=== PATIENT | male | born 2000 | race Caucasian/White ===

== ENCOUNTER → 2023-01-11 13:07 | Outpatient (BNVA) | payer BC, SELFPAY | PROVIDERS: Visit Provider Physician Assistant | DX: M51.26 Other intervertebral disc displacement, lumbar region (principal) | CPT/HCPCS: 99212 ==

== ENCOUNTER → 2023-02-25 15:15 | Outpatient (BNVA) | payer BC, SELFPAY | PROVIDERS: Visit Provider Physician Assistant ==

== ENCOUNTER 2023-06-21 12:59 | Outpatient (AMB) | payer BC, OTHER, SELFPAY ==
--- NOTE | 2023-06-21 13:14 | HO.SPINEOV ---
Intake Intake Visit Reasons: Back pain Intake Note: Mr. Alexis is here today c/o recurrent low back pain. Conference Concierge Required: No Assessment & Plan Assessment & Plan (1) Lumbar disc herniation: Code(s): M51.26 - Other intervertebral disc displacement, lumbar region Plan Clemente is a 22 year old male who comes in today with a chief complaint of continued leg pain with intermittent R sided radiculopathy down his posterior thigh. He is previously known to our service and had a L5-S1 microdiskectomy done in spring of this year (2022). He had returned to work after surgery and was lifting / twisting with boxes in his hands and felt a pop in his low back which brought him to his knees. He was seen by emergency medical services who completed at MRI showing a recurrence of a disc herniation at L5-S1. It should also be noted that a mild-moderate posterior disc bulge can also be appreciated at L4-5. He states that he was beginning to feel better in late January when he saw ROBEL Vargas, but has continued to have moderate low back and R leg pain since then. He also states that 2 weeks ago he again had another incident when he felt another pop when turning to open his front door, which again sent shooting pains down the back of his leg, and caused him to limp / remain in bed for multiple days until his symptoms returned to his baseline of low back pain and posterior R radiculopathy. It seems that Clemente contineus to suffer from recurrent disc herniations at L5-S1 and possibly at L4-5. I discussed this case with Dr. Dodge who would like Clemente to get a repeat MRI before being seen back in the clinic by him to discuss surgical options. I will order an MRI to be completed here at [facility] per patient request. Total time spent with patient was 35 minutes reviewing MRI, comparing to old imaging, discussing treatment options, ordering new imaging, and developing subsequent plan of care. Geovanny Penn PA-C Orders: Orders MR lumbar spine wo con Today M51.26 - Other intervertebral disc displacement, lumbar region Coding Level of Care Code Est Pt Level 4 (16200) Diagnoses Lumbar disc herniation M51.26
== END 2023-06-21 14:02 | disposition home or self-care (01) ==
PROVIDERS: Visit Provider Physician Assistant
DX: M51.26 Other intervertebral disc displacement, lumbar region (principal)
CPT/HCPCS: 99214

== ENCOUNTER → 2023-06-21 12:59 | Outpatient (BNVA) | payer BC, OTHER, SELFPAY | PROVIDERS: Visit Provider Physician Assistant ==

== ENCOUNTER 2023-07-11 19:01 | Outpatient (REF) | payer BC, OTHER, SELFPAY ==
--- NOTE | ~2023-07-11 | MR_ITS ---
EXAMINATION: MR LUMBAR SPINE WITHOUT CONTRAST CLINICAL INFORMATION: New pain status post prior surgery COMPARISON: None TECHNIQUE: MRI of the lumbar spine was obtained using routine sequences without contrast. FINDINGS: Straightening of the normal lumbar lordosis. Grade 1 retrolisthesis at L5-S1 and trace retrolisthesis at L4-L5. Vertebral body heights are maintained. There is no suspicious osseous lesion. Disc desiccation at L4-L5 and L5-S1 with minimal L5-S1 disc height loss. 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 L2-L3: Mild bilateral facet hypertrophy. No spinal canal or neural foraminal stenosis. L3-L4: Shallow annular disc bulge and mild bilateral facet hypertrophy. Mild spinal canal narrowing and minimal left without significant right neural foraminal encroachment. L4-L5: Prior right L4 hemilaminectomy. Annular disc bulge with superimposed small superiorly and inferiorly migrated central disc extrusion, the inferior component which is eccentric to the right. Mild bilateral facet hypertrophy with trace facet joint effusions. Mild spinal canal narrowing and encroachment/abutment upon the traversing right L5 nerve root in the subarticular zone. Mild bilateral neural foraminal encroachment. L5-S1: Prior left L5 hemilaminectomy. Retrolisthesis with annular disc bulge and superimposed broad-based paracentral/subarticular disc extrusion eccentric to the left with inferiorly migrated left central component and mild bilateral facet hypertrophy. Mild spinal canal narrowing and left greater than right subarticular zone stenosis impressing upon the traversing left and encroaching upon the traversing right S1 nerve roots. The conus medullaris terminates at the level of L2. The distal spinal cord is normal in appearance. . No epidural fluid collection, hematoma, or mass. No significant abnormalities of the paraspinal musculature. Limited evaluation of the intra-abdominal structures without significant abnormalities. The abdominal aorta is of normal contour and caliber. MR/MR lumbar spine wo con IMPRESSION: 1. 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 At L4-L5, prior right L4 hemilaminectomy. Annular disc bulge with superimposed small superiorly and inferiorly migrated central disc extrusion, the latter of which is eccentric to the right and contributes to mild spinal canal narrowing and encroachment/abutment upon the traversing right L5 nerve root in the subarticular zone. 3. At L5-S1, prior left L5 hemilaminectomy. Grade 1 retrolisthesis with annular disc bulge and broad-based left paracentral/subarticular disc extrusion with inferiorly migrated left central component. Mild spinal canal narrowing and left greater than right subarticular zone stenosis impressing upon the traversing left and encroaching upon the traversing right S1 nerve roots.
== END 2023-07-11 19:02 | disposition home or self-care (01) ==
LOC: HO.MRI 19:01
PROVIDERS: Visit Provider Physician Assistant
DX: M51.26 Other intervertebral disc displacement, lumbar region (principal)
CPT/HCPCS: 72148

== ENCOUNTER 2023-07-20 13:42 | Outpatient (AMB) | payer BC, OTHER, SELFPAY ==
--- NOTE | 2023-07-20 13:53 | HO.SPINEOV ---
Intake Intake Visit Reasons: discuss MRI Intake Note: Mr. Alexis is here today to discuss the results of his MRI. Assessment & Plan Assessment & Plan (1) Lumbar disc herniation: Code(s): M51.26 - Other intervertebral disc displacement, lumbar region Plan Clemente comes in today as a follow-up patient after having his MRI completed and reviewed. He continues to have R sided leg pain with intermittent R sided radiculopathy down his posterior thigh, alongside low back pain. His symptoms have not improved at all. His right-sided radiculopathy gets so bad at times that it wakes him from his sleep. 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 His MRI shows some central canal stenosis at L5-S1, alongside some S1 right-sided exiting nerve root impingement Due to disc protrusion on this side. The MRI was reviewed with Dr. Dodge, who offered him a L5-S1 right-sided microdiskectomy completed. We extensively reviewed the healing course of disc herniations, and discussed the pros and cons of proceeding with this surgery, especially considering the patient is 22 years old and this will be his 2nd lumbar surgery. he reported that the pain is right leg and low back her so bad that he would like to have the surgery completed & cannot continue to live like this. Medications, physical exercise, and [id number] medications have been of no use to him. Clemente was given risk and benefits of surgery including but not limited to infection, hematoma, nerve injury, durotomy, weakness, bowel/bladder injury, persistent pain, as well as the option to continue with conservative treatment and patient wishes to proceed with surgery. Clemente is aware they should stop their NSAID medication 7 days prior to surgery. All questions were answered to the best of our ability. If there is anything about this patients medical history that we have overlooked or concerns you have about us proceeding with surgery we would appreciate any input you can offer. Total amount of time spent in this visit was 35 minutes in discussion of symptoms, MRI imaging results and subsequent plan of care Geovanny Dodge MD,PhD [facility] Coding Level of Care Code Est Pt Level 4 (77186) Diagnoses Lumbar disc herniation M51.26
== END 2023-07-20 14:12 | disposition home or self-care (01) ==
PROVIDERS: Visit Provider Physician Assistant
DX: M51.26 Other intervertebral disc displacement, lumbar region (principal)
CPT/HCPCS: 99214

== ENCOUNTER → 2023-07-20 13:42 | Outpatient (BNVA) | payer BC, OTHER, SELFPAY | PROVIDERS: Visit Provider Physician Assistant ==

== ENCOUNTER → 2023-09-29 13:17 | Outpatient (BNV) | payer BC, OTHER, SELFPAY | PROVIDERS: Visit Provider Internal Medicine Cardiovascular Disease | DX: R00.1 Bradycardia, unspecified (principal) | CPT/HCPCS: 93010 ==

== ENCOUNTER 2023-10-13 05:45 | Day surgery (SDC) | payer BC, OTHER, SELFPAY ==
--- NOTE | 2023-09-29 | ECG_ITS ---
Test Reason : preop Blood Pressure : / mmHG Vent. Rate : 058 BPM Atrial Rate : 058 BPM P-R Int : 162 ms QRS Dur : 106 ms QT Int : 414 ms P-R-T Axes : 033 008 016 degrees QTc Int : 406 ms Sinus bradycardia with sinus arrhythmia Otherwise normal ECG No previous ECGs available Referred By: Jackie Bedoya Electronically Signed By:CRISTIAN DUPREE MD
[2023-09-29 12:36] VITALS: BP 130/94; PULSE 83; RESP 20; O2SAT 97; BMI 37.1
--- NOTE | 2023-09-29 12:48 | P.CONAN_ITS ---
Documented by User: Jackie Bedoya NP 10/12/23 08:37 HPI - Anesthesia Eval Consult details Narrative: 22yo M for Left L5-S1 Microlumbar discectomy, 10/13/23 No PCP. No recent illness. No CP/SOB within limits of pain. Asthma stable. Uses brothers albuterol inhaler. Only exacerbated with cat allergy and running in the cold GERD. No rx. PMFSH Active Problems Active Problems: All Active Problems (Updated 09/29/23 @ 12:27 by Radha Hill RN) Lumbar disc herniation (Acute) Past Medical History Medical History (Updated 09/29/23 @ 12:27 by Radha Hill RN) Back pain Suicide attempt GERD (gastroesophageal reflux disease) Asthma Lumbar disc disease with radiculopathy Family History Family history of problems with anesthesia: No Surgical History Surgical History (Updated 09/29/23 @ 12:29 by Radha Hill RN) Hx of hand surgery History of surgery Hx of circumcision Hx of lumbar discectomy History of Problems with Anesthesia: No Social History Social History Are you a primary home care manager to a significant other at home: No Do you presently have visiting nurse or other home services: No Tobacco use type: Smokeless Tobacco Use of substances other than those prescribed or required for medical reasons: Yes Substance Use Type Other:: smokes marijuana Substance Use Frequency: Daily Have you been hit, kicked, punched, or otherwise hurt by someone within the past year? If so, by whom?: No Are you DNR?: No Advance Directives: No Advance Directives Information Provided: Yes Advance Directives on File: No Recently lost weight without trying: No Eating poorly because of decreased appetite: No Nutrition Risks: No Nutritional Risk Poor oral hygiene: No Meds Allergies Allergy/AdvReac Type Severity Reaction Status Date / Time Penicillins Allergy Severe Rash-childhood Verified 09/29/23 12:31 allergy avocado Allergy Intermediate mouth Verified 09/29/23 12:34 itching banana Allergy Intermediate mouth Verified 09/29/23 12:34 itching Home Medications Medication Instructions Recorded Confirmed Last Taken Type albuterol sulfate 0.63 mg/3 mL 0.63 mg inhalation Q4-6H PRN 09/29/23 09/29/23 Unknown History solution for nebulization Shortness Of Breath Or Wheezing ibuprofen 800 mg tablet 800 mg PO Q8H PRN Pain 09/29/23 09/29/23 Unknown History Exam Height,Weight and Vital Signs: Height 6 ft 3 in Weight 134.717 kg Last Vital Signs Pulse 83 09/29/23 12:36 Resp 20 09/29/23 12:36 BP 130/94 H 09/29/23 12:36 Pulse Ox 97 09/29/23 12:36 O2 Del Method Room Air 09/29/23 12:36 Pertinent Lab Results Pertinent Lab Results: Lab Results 09/29/23 Range/Units 13:19 WBC 7.0 (4.8-10.8) X10*3/uL RBC 5.43 (4.60-5.80) X10*6/uL Hgb 14.6 (14.0-18.0) g/dl Hct 43.8 (42.0-52.0) % MCV 80.7 (80.0-98.0) fL MCH 26.9 L (27.0-33.0) pg MCHC 33.3 (31.0-36.0) g/dl RDW 11.9 (11.0-16.0) % Plt Count 338 (160-400) X10*3/uL MPV 9.2 L (9.4-12.4) fL Absolute Nucleated RBC 0.000 (0.0-0.012) X10*3/uL Nucleated RBC % (auto) 0.0 (0.0-0.2) /100WBC Sodium 140 (135-145) mmol/L Potassium 4.3 (3.3-5.1) mmol/L Chloride 107 (96-108) mmol/L Carbon Dioxide 28 (22-29) mmol/L Anion Gap 9 L (12-20) BUN 10 (9-16) mg/dL Creatinine 1.03 (0.5-1.4) mg/dL Estim Creat Clear Calc 165.0 Estimated GFR > 60 Random Glucose 99 (60-115) mg/dL Estimat Average Glucose 100 mg/dL Hemoglobin A1c % 5.1 (<6.0) % Calcium 9.4 (8.4-10.2) mg/dL Total Bilirubin 0.3 (0.0-1.0) mg/dL AST 27 (5-37) U/L ALT 56 H (0-40) U/L Alkaline Phosphatase 66 (39-117) U/L Total Protein 7.4 (6.5-8.0) g/dL Albumin 4.2 (3.5-5.0) g/dL Narrative Narrative: EKG 09/2023 Vent. Rate : 058 BPM Atrial Rate : 058 BPM P-R Int : 162 ms QRS Dur : 106 ms QT Int : 414 ms P-R-T Axes : 033 008 016 degrees QTc Int : 406 ms Sinus bradycardia with sinus arrhythmia Otherwise normal ECG No previous ECGs available Airway Mallampati Class: I TM Dist: >3cm Neck ROM: Full Loose/Missing/Broken Teeth: No Heart: RRR Lungs: CTAB Assessment and Plan Assessment Anesthesia Assessment: Anesthesia Plan Discussed, Smoking Cess. Discussed and PAT Visit Final Anesthetic Review Family History of Problems with Anesthesia: No History of Problems with Anesthesia: No Documented by User: Gerhard Coats MD 10/13/23 07:12 [facility] Past Medical History Medical History (Updated 09/29/23 @ 12:27 by Radha Hill RN) Back pain Suicide attempt GERD (gastroesophageal reflux disease) Asthma Lumbar disc disease with radiculopathy Surgical History Surgical History (Updated 09/29/23 @ 12:29 by Radha Hill RN) Hx of hand surgery History of surgery Hx of circumcision Hx of lumbar discectomy Social History Social History Are you a primary home care manager to a significant other at home: No Do you presently have visiting nurse or other home services: No Tobacco use type: Smokeless Tobacco Use of substances other than those prescribed or required for medical reasons: Yes Substance Use Type Other:: smokes marijuana Substance Use Frequency: Daily Have you been hit, kicked, punched, or otherwise hurt by someone within the past year? If so, by whom?: No Are you DNR?: No Advance Directives: No Advance Directives Information Provided: Yes Advance Directives on File: No Recently lost weight without trying: No Eating poorly because of decreased appetite: No Nutrition Risks: No Nutritional Risk Poor oral hygiene: No Meds Allergies Allergy/AdvReac Type Severity Reaction Status Date / Time Penicillins Allergy Severe Rash-childhood Verified 09/29/23 12:31 allergy avocado Allergy Intermediate mouth Verified 09/29/23 12:34 itching banana Allergy Intermediate mouth Verified 09/29/23 12:34 itching Home Medications Medication Instructions Recorded Confirmed Last Taken Type albuterol sulfate 0.63 mg/3 mL 0.63 mg inhalation Q4-6H PRN 09/29/23 09/29/23 Unknown History solution for nebulization Shortness Of Breath Or Wheezing ibuprofen 800 mg tablet 800 mg PO Q8H PRN Pain 09/29/23 09/29/23 Unknown History Exam Airway Mallampati Class: II Assessment and Plan Assessment Anesthesia Assessment: Chart Reviewed Final Anesthetic Review NPO: Yes ASA Class: III Final Preanesthetic Review: No Changes in Pt Med Stat, Meds/Allgs Chart Reviewed, Consent Obtained/Reviewed and Anes Risks/Benef Reviewed Patient Risk: Intermediate Procedure Risk: Intermediate Anesthetic Plan Anesthetic Plan: GA Disposition: Standard PACU
[2023-09-29 13:31] LABS: Hematocrit 43.8 % (42.0-52.0); Hemoglobin 14.6 g/dl (14.0-18.0); Mean Corpuscular HGB Conc 33.3 g/dl (31.0-36.0); Mean Corpuscular Hemoglobin 26.9 pg (27.0-33.0); Mean Corpuscular Volume 80.7 fL (80.0-98.0); Mean Platelet Volume 9.2 fL (9.4-12.4); Platelet Count 338 X10*3/uL (160-400); Red Blood Count 5.43 X10*6/uL (4.60-5.80); Red Cell Distribution Width 11.9 % (11.0-16.0)
[2023-09-29 13:48] LABS: Estimated Average Glucose 100 mg/dL; Hemoglobin A1C 121.8638 umol/L; Hemoglobin A1c % 5.1 % (<6.0)
[2023-09-29 14:02] LABS: Alanine Aminotransferase 56 U/L (0-40); Albumin Level 4.2 g/dL (3.5-5.0); Alkaline Phosphatase 66 U/L (39-117); Anion Gap 9 (12-20); Aspartate Amino Transferase 27 U/L (5-37); Bilirubin Total 0.3 mg/dL (0.0-1.0); Blood Urea Nitrogen 10 mg/dL (9-16); Calcium 9.4 mg/dL (8.4-10.2); Carbon Dioxide 28 mmol/L (22-29); Chloride 107 mmol/L (96-108); Estimated Glomerular Filt Rate > 60; Glucose Random 99 mg/dL (60-115); Potassium 4.3 mmol/L (3.3-5.1); Sodium 140 mmol/L (135-145); Total Protein 7.4 g/dL (6.5-8.0)
[2023-10-13] VITALS (9 sets, daily range): BP systolic 92–113; BP diastolic 45–87; PULSE 57–105; RESP 16–20; TEMP 36.1–36.6; O2SAT 97–100; BMI 37.0
--- NOTE | ~2023-10-13 | FL_ITS ---
EXAMINATION: XR FLUOROSCOPY WITH IMAGES CLINICAL INFORMATION: L5-S1 microlumbar discectomy. COMPARISON: MRI lumbar spine dated 07/11/2023. TECHNIQUE: Fluoroscopy Supervised By: Dr. Jayant Dodge. Fluoroscopy Time: 0.0. Cumulative Dose: 3.16 mGy. DAP: 0.685 Gycm2. Images: 1. FINDINGS: The submitted lateral fluoroscopic view of the lumbosacral spine shows a probe directed at the posterior margin of the L5-S1 disc space. FL/FL guidance in OR IMPRESSION: Intraoperative fluoroscopic guidance is provided during L5-S1 microlumbar discectomy. Please see the patient's Operative Report for full procedural details.
[2023-10-13] MEDS: Gabapentin 300 MG CAPSULE PO (06:35)
[2023-10-13] MEDS: methocarbamoL 750 MG TABLET PO (06:35)
[2023-10-13] MEDS: Lactated Ringers 1,000 ML 100 ML IVCONT (06:42)
--- NOTE | 2023-10-13 07:02 | MHC.SHP ---
Pre-Procedural Eval Section A Date of Service: 10/13/23 The patient is an INPATIENT: No Changes since office visit: No Cold of Flu in the past 2 weeks, No New Medical Problems, No Changes in Medication and No Patient answered all questions The History & Physical has been completed within 30 days and I have reviewed it.: No Section B Chief Complaint: Other intervertebral disc displacement, lumbar reg Allergies: Allergies Allergy/AdvReac Type Severity Reaction Status Date / Time Penicillins Allergy Severe Rash-childhood Verified 09/29/23 12:31 allergy avocado Allergy Intermediate mouth Verified 09/29/23 12:34 itching banana Allergy Intermediate mouth Verified 09/29/23 12:34 itching Review of Systems Sugical H&P ROS: Negative: Constitution, Cardiovascular, Respiratory, Neurological, Psychiatric, Hem-Onc, Allergic/Immunologic, Gastrointestinal, Genitourinary, Musculoskeletal, Integumentary, Endocrine and Eyes/Ears/Nose/Throat Exam Surgical H&P Exam: Not Evaluated: HEENT, Not Evaluated: Heart, Not Evaluated: Lungs, Not Evaluated: Extremities, Not Evaluated: Abdomen, Not Evaluated: Skin and Not Evaluated: Neurological Plan Diagnosis/Plan: Unchanged right L5-S1 microdiskectomy Time Spent With Patient Time: Total time managing care of this patient today __5__ minutes.
--- NOTE | 2023-10-13 07:37 | PC.NURSE ---
patient ready awaiting to give report. or bed for surgery are being switched due to a cancellation.
--- NOTE | 2023-10-13 08:49 | P.OP_ITS ---
Operative Note Operative Note Date of Service: 10/13/23 Narrative: Preoperative diagnosis: Right lumbar radiculopathy due to disc herniation Postoperative diagnosis: Same Procedure: Right L5-S1 lumbar microdiskectomy with microscope Surgeon: Shaan Dodge MD, PhD Print Room Worker: arleen Bolton This patient underwent a left L5-S1 microdiskectomy another institution. He came in with a right lumbar radiculopathy and back pain. The MRI of the lumbar spine shows a central disc bulge influencing the right S1 nerve root. The patient was offered a lumbar microdiskectomy to decompress the nerve root. The procedure complications were explained. The patient was consented. The patient was brought to the operating room and endotracheally intubated. The patient was turned in a prone position on the Winston frame. Prepping and draping was done followed by time-out. A mid lumbar incision was made followed by release of the paravertebral muscles on the right side to expose the L5-S1 interspace. An intraoperative x-rays obtained to confirm the correct level. The microscope was brought in. A right L5 laminotomy was done followed by opening of the flavum ligament. The S1 nerve root was identified and retracted medially to expose the L5-S1 disc space. No significant disc herniation was found. I decompress the S1 nerve root over its trajectory This resulted in an excellent decompression of the S1 nerve root. Hemostasis was done. The microscope was removed. Marcaine was injected intramuscularly.The incision was closed in two layers. Steri-Strips used to approximate seizure. An op-site were taken there was used to cover the incision. All sponge and needle counts were correct. Patient was extubated and transported in stable condition to recovery room. this procedure was done with the aid of a physician healthcare administrative assistant who performed the initial exposure until the microscope was brought in and performed the closure of the incision. Anesthesia: General Blood loss: 10 mL Complications: None Specimen: None Surgical time: Disposition: Discharge home
--- NOTE | 2023-10-13 09:06 | PM.DS ---
DS: Providers Provider Date of Service: 10/13/23 Date of discharge: 10/13/23 Primary care physician: None Physician Admitting clinician: Shaan Dodge DS: Diagnosis Discharge Diagnosis (1) Lumbar disc herniation: Status: Acute DS: Summary Time Attestation Discharge coordination time: Less than 30 minutes Quality: Safe Use of Opioids Does Pt have an Active Cancer Diagnosis on the Problem List?: No Quality: Stroke Does the patient have a stroke diagnosis?: No Physical Exam Vital Signs: Vital Signs: Last Vital Signs Pulse 83 09/29/23 12:36 Resp 20 09/29/23 12:36 BP 130/94 H 09/29/23 12:36 Pulse Ox 97 09/29/23 12:36 O2 Del Method Room Air 09/29/23 12:36 BMI result Body Mass Index 37.0 Discharge Plan Discharge Patient Disposition: Home, Self-Care Referrals: Physician,None [Primary Care Provider] - 1 Week Discharge Medications: New docusate sodium [Colace] 100 mg capsule 100 mg PO BID Qty: 20 0RF oxycodone 5 mg tablet 5 mg PO Q4H PRN (Reason: pain) Qty: 30 0RF Rx Instructions: Partial Fill upon patient request. Continued albuterol sulfate 0.63 mg/3 mL Solution For Nebulization 0.63 mg INHALATION Q4-6H PRN (Reason: Shortness Of Breath Or Wheezing) ibuprofen 800 mg tablet 800 mg PO Q8H PRN (Reason: Pain) Discharge Orders: Discharge Order (Routine); Ordered 10/13/23 Ordered By: Bradford Vargas Diet: Advance to usual diet Activity on Discharge: As tolerated Activity Restrictions/Additional Instructions: After your spinal surgery we ask you to observe the following restrictions/guidelines: Activity: It is normal to feel some discomfort as you increase your activity, but that will improve with time. We ask you avoid heavy lifting or acitivities that cause pain. As a general rule, 8lbs is a safe limit for lifting right after surgery. Walk as much as you feel comfortable but not to exhaustion. You will feel extra tired the first few days after surgery. Stay well hydrated. It is OK to walk up and down stairs You may return to driving when you are off narcotics (such as vicodin, oxycodone, dilaudid, etc), and you are back to normal functional capacity. If you have any concerns please check with office before driving. Return to work is specific to each patient and each surgery, so please speak with your doctor/PA at first follow up. Please bring paperwork such as FMLA at that time if you need it filled out. Medications: For optimum pain control, it is best to start with a combination of 500 mg of Tylenol every 4 hours with 600 mg of Motrin every 8 hours, and use narcotics as needed in between for breakthrough pain. We will give you a short supply of narcotics after surgery (usually one weeks worth). If you need more please call the office but do not use more than prescribed. You will need to give our office 48 hours notice if you need narcotics refilled and we do not fill narcotics on weekends or evenings. If you are on a narcotic, it is a good idea to take a stool softener such as colace or senna to avoid constipation If you take blood thinner such as aspirin, Plavix, Coumadin, Effient, Eliquis etc for conditions such as Afib, DVT, Pulmonary embolus, coronary disease, stents etc please speak with your surgeon about specific details as to when you can resume these medications. You can resume NSAIDs on post op day 1 (eg: Motrin, Naproxen, etc). Follow up: Please call the office, , after surgery to arrange a 3 week follow up for wound check. Wound Care: You may remove your dressing on the first day after surgery. ?You may ?leave open to air. Please do not remove the steri strips underneath. they will fall off on their own in one week. IT IS NORMAL FOR THE WOUND TO OOZE OR BE BLOODY FOR A FEW DAYS AFTER SURGERY. ?IF THIS HAPPENS JUST PLACE NEW DRESSING OVER IT TO AVOID STAINING CLOTHES. You may shower on post op day # 1 We ask that you do not let the water soak the wound. If it does get wet, just towel dry lightly. Please do not scrub your incision or place any type of chemical/ointment on the wound. No tub baths, pools or jacuzzis for one month. If you have any leaking or redness from your wound, or fevers, please call office
[2023-10-13] MEDS: oxyCODONE HCl Immed Release 5 MG TABLET 10 MG PO (09:39)
== END 2023-10-13 11:27 | disposition home or self-care (01) ==
PROVIDERS: Nurse Practitioner; Visit Provider Neurological Surgery
PROC: (CPT 63030; principal; 2023-10-13 07:30)
DX: M51.26 Other intervertebral disc displacement, lumbar region (principal); M51.16 Intervertebral disc disorders with radiculopathy, lumbar region; M79.604 Pain in right leg; J45.909 Unspecified asthma, uncomplicated; K21.9 Gastro-esophageal reflux disease without esophagitis; Z79.1 Long term (current) use of non-steroidal anti-inflammatories (NSAID); Z79.899 Other long term (current) drug therapy; Z88.0 Allergy status to penicillin; F12.90 Cannabis use, unspecified, uncomplicated; Z98.890 Other specified postprocedural states
CPT/HCPCS: 63030; 36415; 80053; 83036; 85027; 93005; J0131; J1100; J1885; J2250; J2371; J2405; J2704; J3010; J3370

== ENCOUNTER → 2023-10-13 05:45 | Outpatient (BNV) | payer BC, OTHER, SELFPAY | PROVIDERS: Visit Provider Neurological Surgery | DX: M51.26 Other intervertebral disc displacement, lumbar region (principal) | CPT/HCPCS: 63030; 99499 ==